=== PATIENT | male | born 2000 | race Caucasian/White ===

== ENCOUNTER 2020-07-31 17:18 | Emergency (ER) | payer OTHER | END 2020-07-31 18:17 | disposition home or self-care (01) | LOC: JVIRT 17:18 | DX: Z03.818 Encounter for observation for suspected exposure to other biological agents ruled out (principal) | CPT/HCPCS: Q3014-GT ==

== ENCOUNTER 2020-08-02 15:52 | Emergency (ER) | payer OTHER | END 2020-08-02 16:32 | disposition home or self-care (01) | LOC: JVIRT 15:52 | DX: U07.1 COVID-19 (principal) | CPT/HCPCS: C9803; Q3014-GT; U0003 ==